=== PATIENT | female | born 1980 | race Caucasian/White ===

== ENCOUNTER 2016-03-30 17:46 | Emergency (ER) | payer BC ==
--- NOTE | 2016-03-30 18:29 | DIAGNOSTIC IMAGING REPORT ---
PROCEDURE: CT HEAD WITHOUT CONTRAST INDICATION: Frontal headache. Nausea. TECHNIQUE: Noncontrast axial images with sagittal and coronal reformations. COMPARISON: None. FINDINGS: Brain and ventricles are normal. No evidence of an acute process or hemorrhage. Sinuses and mastoids are normal. IMPRESSION: 1. Negative head CT. 2. Findings discussed with PRINCESS Feldman at [address] scans at this facility use dose modulation, iterative reconstruction, and/or weight-based dosing when appropriate to reduce radiation dose to as low as reasonably achievable.
--- NOTE | 2016-03-30 18:31 | ED NURSING NOTES ---
Clinical Report - Nurses [facility] [place] [address] 03/30/2016 17:53 Patient: LAITH CHAN TRIAGE Triage time 1802 PM. Chief Complaint: HEADACHE. Alert. No acute distress. DANETTE COMA SCORE: [place] Coma Scale: 15- eyes open spontaneously (4); best verbal response- oriented x 4 (5); best motor response- obeys commands (6). --18:12 Mohsen Nova R.N. 18:02 03/30/16. BP: 143/88. HR: 82. RR: 16. O2 saturation: 100%. Temp: 98.3 F. Pain level now: 01/02. --18:12 Mohsen Nova R.N. Weight: 69.8 kg stated. Height/Length: 59 inches Per Patient. BMI: 31.1. --18:06 Mohsen Nova R.N. Medications Vicodin Oral. --18:08 Mohsen Nova R.N. Venlafaxine HCl Oral. --18:08 Mohsen Nova R.N. Flonase Nasal. --18:08 Mohsen Nova R.N. ALPRAZolam Oral. --18:08 Mohsen Nova R.N. Allergies Sulfa Antibiotics. --18:09 Mohsen Nova R.N. Niacin. --18:09 Mohsen Nova R.N. Cymbalta. --18:09 Mohsen Nova R.N. History Arrived by private vehicle. Historian: patient and family. ( Patient presents to the ED with symptoms of headache, blood noses, and numbness on the right side of her face. Patient states that she went to the walk in clinic and they referred her to the ED. Patient states that the headache started yesterday and has taken ibuprofen, Excedrin, and "sinus meds" without relief. Patient states that the numbness and redness to the right side of her face is new to occurred both yesterday and today.). She has had nausea and weakness. 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 ("sinus meds" excedrin). PAST MEDICAL HX: Headaches. SOCIAL HX: Smoker- current status unknown (vaping). Alcohol use. (no). History of drug use. (no). No infectious disease exposure. FALL RISK ASSESSMENT: Fall risk assessment completed. No fall risk identified. NUTRITIONAL RISK ASSESSMENT: The nutritional risk assessment revealed no deficiencies. FUNCTIONAL ASSESSMENT: Functional assessment: no impairments noted. LEARNING NEEDS ASSESSMENT: The learning needs assessment revealed no barriers. SKIN INTEGRITY ASSESSMENT: Skin integrity risk assessment completed. No skin integrity risk identified. --18:12 Mohsen Nova R.N. PROBLEMS: Chronic sinusitis. Allergies. Headache. --18:11 Mohsen Nova R.N. ADDITIONAL SURGERIES: Appendectomy. Breast Reduction . Cholecystectomy. Inguinal Hernia Repair. --18:11 Mohsen Nova R.N. PHYSICAL ASSESSMENT GENERAL / NEURO / PSYCH: Alert. Oriented X 4. Appears in pain. Speech within normal limits. HEENT: No facial asymmetry noted. Pupils equal, round and reactive to light. RESPIRATORY: Respirations not labored. Breath sounds within normal limits. CVS: Capillary refill less than 2 seconds. GI / : Abdomen soft and nontender. SKIN: Skin is warm and dry. Skin rash located on the face. --18:12 Mohsen Nova R.N. Ambulatory to room. --18:12 Mohsen Nova R.N. NURSING PROGRESS NOTES 18:43 03/30/2016 Toradol (Ketorolac Tromethamine) IM 60 mg given. Given in the right deltoid. Allergies verified and confirmed 5 rights. --18:43 Mohsen Nova R.N. 18:43 03/30/2016 Benadryl (DiphenhydrAMINE HCl) IM 50 mg given. Given in the left deltoid. Allergies verified, confirmed 5 rights and sedative warning given to the patient. --18:43 Mohsen Nova R.N. 18:44 03/30/2016 Metoclopramide IM 10 mg given. Given in the right deltoid. Allergies verified and confirmed 5 rights. --18:44 Mohsen Nova R.N. DISPOSITION / DISCHARGE 19:16 03/30/2016 Toradol IM Response: no adverse reaction pain is improving. --19:16 Adonay JoleneZeina 19:16 03/30/2016 Benadryl IM Response: no adverse reaction pain is improving. --19:16 Jolene Urias R.N. 19:16 03/30/2016 Metoclopramide IM Response: no adverse reaction pain is improving. --19:16 Jolene Urias R.N. Departure time: 1915 pm. Condition at departure: improved and stable. No learning barriers present. Discharge instructions provided and reviewed with the patient and spouse. Reviewed warnings. Reviewed medication(s). Patient and spouse verbalized understanding. Written instructions provided in Maltese. The patient was discharged home and accompanied by spouse. She left the Emergency Department ambulatory and via private vehicle. Spouse driving. --19:17 Jolene Urias R.N. 19:16 03/30/16. BP: 120/75. HR: 72. RR: 16. O2 saturation: 100%. Temp: 98.3 F. Pain level now: 06/02. --19:17 Jolene Urias R.N. Locked/Released at 03/30/2016 19:41 by Mohsen Nova R.N.
--- NOTE | 2016-03-30 18:31 | ED ORDER SUMMARY ---
..... Patient: LAITH CHAN OrderSheet [facility] VisitID: [id number] [place] [address] 35y, F Registration Date/Time: 03/30/2016 ORDER SHEET Weight: 69.8 kg (stated) Allergies: Sulfa Antibiotics, Niacin, Cymbalta GENERAL ORDERS: CT Head wo Cont Urgent (18:08 03/30/2016 HBivens A.R.N.P.) (Ack 18:09 LTapper) (18:43 HOShaughnessy R.N.) Oxygen (2 L/min) (NC) (18:21 03/30/2016 HBivens A.R.N.P.) (18:43 HOShaughnessy R.N.) MEDICATION ORDERS: Toradol IM 60 mg (NOW) (18:07 03/30/2016 HBivens A.R.N.P.) (18:43 HOShaughnessy R.N.) Benadryl IM 50 mg (NOW) (18:07 03/30/2016 HBivens A.R.N.P.) (18:43 HOShaughnessy R.N.) - (Reglan 10mg im) (18:07 03/30/2016 HBivens A.R.N.P.) (18:44 HOShaughnessy R.N.) IV FLUIDS: ORDER SHEET NOTES: [Electronically signed by Mohsen Nova R.N. (19:41 03/30/2016)] [Electronically signed by Claudia Mckinnon A.R.N.P. (19:42 03/30/2016)] [Electronically locked/signed by Mohsen Nova R.N. (19:41 03/30/2016)]
--- NOTE | 2016-03-30 18:31 | ED NURSING NOTES ---
Clinical Report - Nurses [facility] [place] [address] 03/30/2016 17:53 Patient: LAITH CHAN TRIAGE Triage time 1802 PM. Chief Complaint: HEADACHE. Alert. No acute distress. DANETTE COMA SCORE: [place] Coma Scale: 15- eyes open spontaneously (4); best verbal response- oriented x 4 (5); best motor response- obeys commands (6). --18:12 Mohsen Nova R.N. 18:02 03/30/16. BP: 143/88. HR: 82. RR: 16. O2 saturation: 100%. Temp: 98.3 F. Pain level now: 01/02. --18:12 Mohsen Nova R.N. Weight: 69.8 kg stated. Height/Length: 59 inches Per Patient. BMI: 31.1. --18:06 Mohsen Nova R.N. Medications Vicodin Oral. --18:08 Mohsen Nova R.N. Venlafaxine HCl Oral. --18:08 Mohsen Nova R.N. Flonase Nasal. --18:08 Mohsen Nova R.N. ALPRAZolam Oral. --18:08 Mohsen Nova R.N. Allergies Sulfa Antibiotics. --18:09 Mohsen Nova R.N. Niacin. --18:09 Mohsen Nova R.N. Cymbalta. --18:09 Mohsen Nova R.N. History Arrived by private vehicle. Historian: patient and family. ( Patient presents to the ED with symptoms of headache, blood noses, and numbness on the right side of her face. Patient states that she went to the walk in clinic and they referred her to the ED. Patient states that the headache started yesterday and has taken ibuprofen, Excedrin, and "sinus meds" without relief. Patient states that the numbness and redness to the right side of her face is new to occurred both yesterday and today.). She has had nausea and weakness. 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 ("sinus meds" excedrin). PAST MEDICAL HX: Headaches. SOCIAL HX: Smoker- current status unknown (vaping). Alcohol use. (no). History of drug use. (no). No infectious disease exposure. FALL RISK ASSESSMENT: Fall risk assessment completed. No fall risk identified. NUTRITIONAL RISK ASSESSMENT: The nutritional risk assessment revealed no deficiencies. FUNCTIONAL ASSESSMENT: Functional assessment: no impairments noted. LEARNING NEEDS ASSESSMENT: The learning needs assessment revealed no barriers. SKIN INTEGRITY ASSESSMENT: Skin integrity risk assessment completed. No skin integrity risk identified. --18:12 Mohsen Nova R.N. PROBLEMS: Chronic sinusitis. Allergies. Headache. --18:11 Mohsen Nova R.N. ADDITIONAL SURGERIES: Appendectomy. Breast Reduction . Cholecystectomy. Inguinal Hernia Repair. --18:11 Mohsen Nova R.N. PHYSICAL ASSESSMENT GENERAL / NEURO / PSYCH: Alert. Oriented X 4. Appears in pain. Speech within normal limits. HEENT: No facial asymmetry noted. Pupils equal, round and reactive to light. RESPIRATORY: Respirations not labored. Breath sounds within normal limits. CVS: Capillary refill less than 2 seconds. GI / : Abdomen soft and nontender. SKIN: Skin is warm and dry. Skin rash located on the face. --18:12 Mohsen Nova R.N. Ambulatory to room. --18:12 Mohsen Nova R.N. NURSING PROGRESS NOTES 18:43 03/30/2016 Toradol (Ketorolac Tromethamine) IM 60 mg given. Given in the right deltoid. Allergies verified and confirmed 5 rights. --18:43 Mohsen Nova R.N. 18:43 03/30/2016 Benadryl (DiphenhydrAMINE HCl) IM 50 mg given. Given in the left deltoid. Allergies verified, confirmed 5 rights and sedative warning given to the patient. --18:43 Mohsen Nova R.N. 18:44 03/30/2016 Metoclopramide IM 10 mg given. Given in the right deltoid. Allergies verified and confirmed 5 rights. --18:44 Mohsen Nova R.N. DISPOSITION / DISCHARGE 19:16 03/30/2016 Toradol IM Response: no adverse reaction pain is improving. --19:16 Adonay JoleneZeina 19:16 03/30/2016 Benadryl IM Response: no adverse reaction pain is improving. --19:16 Jolene Urias R.N. 19:16 03/30/2016 Metoclopramide IM Response: no adverse reaction pain is improving. --19:16 Jolene Urias R.N. Departure time: 1915 pm. Condition at departure: improved and stable. No learning barriers present. Discharge instructions provided and reviewed with the patient and spouse. Reviewed warnings. Reviewed medication(s). Patient and spouse verbalized understanding. Written instructions provided in [place]. The patient was discharged home and accompanied by spouse. She left the Emergency Department ambulatory and via private vehicle. Spouse driving. --19:17 Jolene Urias R.N. 19:16 03/30/16. BP: 120/75. HR: 72. RR: 16. O2 saturation: 100%. Temp: 98.3 F. Pain level now: 06/02. --19:17 Jolene Urias R.N. Locked/Released at 03/30/2016 19:41 by Mohsen Nova R.N.
--- NOTE | 2016-03-30 18:31 | ED CLINICAL REPORT ---
Clinical Report - Physicians/Mid Levels [facility] [address] [place] [address] 03/30/2016 17:53 Patient: LAITH CHAN Time Seen: 17:58; upon arrival, initial patient contact, initial documentation, patient care assumed. Arrived- By private vehicle. Historian- patient. HISTORY OF PRESENT ILLNESS Is still present. Chief Complaint: HEADACHE. This started about 1 weeks ago. It was abrupt in onset and has been constant. It is described as similar to previous headaches, "pain" and diffuse. At its maximum, severity described as severe. When seen in the E.D., severity described as severe. Modifying factors: relieved by nothing. Not worsened by anything. The patient has had nausea. She has had new onset of localized numbness of the right face (mild). No preceding symptoms, blurred vision, photophobia, weakness or vomiting. (took numerous otc meds, including sinus meds, no relief, has pending appt with ent). No recent travel. Similar symptoms previously: Chronically, milder. Recent medical care: The patient was seen recently in a clinic. ( went to walk in clinic [employer], sent here for further eval and possible head ct). REVIEW OF SYSTEMS No fever, sinus pressure, ear pain, sore throat or head injury. She has had a mild skin rash consisting of "redness" located on the face and neck (rash that started earlier today on R side of face and neck, almost gone now). Skin rash is not itchy or painful. All systems otherwise negative, except as recorded above. PAST HISTORY See nurses notes. PROBLEMS: Chronic sinusitis. Allergies. Headache. --18:11 Mohsen Nova RUche. ADDITIONAL SURGERIES: Appendectomy. Breast Reduction . Cholecystectomy. Inguinal Hernia Repair. --18:11 Mohsen Nova R.N. 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 Occasional alcohol use. No drug use. No recent travel. Is a local resident. FAMILY HISTORY Negative. ADDITIONAL NOTES The nursing notes have been reviewed with agreement regarding the chief complaint, HPI, ROS, PMH and patient medications and allergies. PHYSICAL EXAM Vital Signs: 03/30/2016 18:02 BP: 143/88. HR: 82. RR: 16. O2 saturation: 100%. Temp: 98.3 F. Pain level now: 01/02. Have been reviewed as normal and appear to be correct. Appearance: Alert. No acute distress. Eyes: Pupils equal, round and reactive to light. Eyes normal inspection. ENT: Ears normal. Nose normal. Pharynx normal. Neck: Normal inspection. Neck supple. CVS: Normal heart rate and rhythm. Heart sounds normal. Pulses normal. Respiratory: No respiratory distress. Breath sounds normal. Back: Normal inspection. Skin: Skin warm and dry. Normal skin color. Rash present. Normal skin turgor. Mild, well-demarcated, erythematous, macular, blanching skin rash with an erythematous base located on the face (R side of face around periorbital area). Extremities: Extremities exhibit normal ROM. No lower extremity edema. Neuro: Oriented X 3. Alert. Mood/affect normal. Speech normal. Cranial nerves normal (as tested). No cerebellar findings. No motor deficit. No sensory deficit. LABS, X-RAYS, AND EKG CT Head: No acute disease. (IMPRESSION: 1. Negative head CT. 2. Findings discussed with PRINCESS Feldman at [address] scans at this facility use dose modulation, iterative reconstruction, and/or weight-based dosing when appropriate to reduce radiation dose to as low as reasonably achievable. Electronically Final signed by:Carloz Sanderson MD 03/30/2016 6:25:06 PM). The study was interpreted by the radiologist and contemporaneously by me. PROGRESS AND PROCEDURES Course of Care: pt does not want the fiorcet, asking for percocet. Patient and spouse counseled in person regarding the patient's stable condition, test results and diagnosis. 18:28. Differential Diagnosis: I considered migraine, cluster headache, subarachnoid hemorrhage, intracranial bleed, vascular malformation, cerebral aneurysm, vascular dissection, vasculitis, temporal arteritis, encephalitis, brain abscess, sinusitis, dental etiology, influenza, viral syndrome, carbon monoxide exposure, analgesic abuse, hypoglycemia and trigeminal neuralgia as a possible cause of headache in this patient. This is a partial list of diagnoses considered. Above considerations are based on history, physical exam and other information. Differential diagnosis was discussed with patient. Disposition: Discharged home in good and improved condition (18:31). Condition: good and stable. CLINICAL IMPRESSION Episodic, poorly controlled headache. INSTRUCTIONS Warnings: GENERAL WARNINGS: Return or contact your physician immediately if your condition worsens or changes unexpectedly, if not improving as expected, or if other problems arise. SPECIFICALLY, return if you develop fever, vomiting, weakness, difficulty thinking, visual disturbances, fainting or extreme fatigue. Prescription Medications: Zofran 4 mg: Take 1 orally every six hours as needed for nausea/vomiting. Dispense ten (10). No refills. Substitution is permissible. Percocet 5 mg/325 mg: take 1 tablet orally every 6 hours as needed for pain. Dispense five (5). No refill. Follow-up: Follow up with your doctor in about three days as needed. Call for an appointment. Summary of care provided to patient. Understanding of the discharge instructions verbalized by patient. (Electronically signed by Claudia Mckinnon A.R.N.P. 03/30/2016 19:42)
--- NOTE | 2016-03-30 18:31 | ED ORDER SUMMARY ---
..... Patient: LAITH CHAN OrderSheet [facility] VisitID: [id number] [place] [address] 35y, F Registration Date/Time: 03/30/2016 ORDER SHEET Weight: 69.8 kg (stated) Allergies: Sulfa Antibiotics, Niacin, Cymbalta GENERAL ORDERS: CT Head wo Cont Urgent (18:08 03/30/2016 HBivens A.R.N.P.) (Ack 18:09 LTapper) (18:43 HOShaughnessy R.N.) Oxygen (2 L/min) (NC) (18:21 03/30/2016 HBivens A.R.N.P.) (18:43 HOShaughnessy R.N.) MEDICATION ORDERS: Toradol IM 60 mg (NOW) (18:07 03/30/2016 HBivens A.R.N.P.) (18:43 HOShaughnessy R.N.) Benadryl IM 50 mg (NOW) (18:07 03/30/2016 HBivens A.R.N.P.) (18:43 HOShaughnessy R.N.) - (Reglan 10mg im) (18:07 03/30/2016 HBivens A.R.N.P.) (18:44 HOShaughnessy R.N.) IV FLUIDS: ORDER SHEET NOTES: [Electronically signed by Mohsen Nova R.N. (19:41 03/30/2016)] [Electronically signed by Claudia Mckinnon A.R.N.P. (19:42 03/30/2016)] [Electronically locked/signed by Mohsen Nova R.N. (19:41 03/30/2016)]
--- NOTE | 2016-03-30 19:43 | ED MED RECONCILIATION SUMMARY ---
Patient: LAITH CHAN Medication Reconciliation Report [facility] VisitID: [id number] [place] [address] 35y, F Registration Date/Time: 03/30/2016 Weight: 69.8 kg Height/Length: 59 in. BMI: 31.1 ALLERGIES: Cymbalta, Niacin, Sulfa Antibiotics The patient's Home Medications are listed below: THE FOLLOWING MEDICATIONS NEED TO BE RECONCILED: ALPRAZolam Oral Flonase Nasal Venlafaxine HCl Oral Vicodin Oral The source(s) of the original Home Medication information: Not obtained. The following Medications were given to the patient in the Emergency Department: Toradol [IM] IM 60 mg, administered: 03/30/2016 6:43:00 PM Benadryl [IM] IM 50 mg, administered: 03/30/2016 6:43:00 PM Metoclopramide [IM] IM 10 mg, administered: 03/30/2016 6:44:00 PM The following Medications were prescribed to the patient: Zofran 4 mg: Take 1 orally every six hours as needed for nausea/vomiting. Dispense ten (10). No refills. Substitution is permissible. -- Claudia Mckinnon, A.R.N.P. Percocet 5 mg/325 mg: take 1 tablet orally every 6 hours as needed for pain. Dispense five (5). No refill. -- Claudia Mckinnon A.R.N.P.
--- NOTE | 2016-03-30 19:43 | ED DISCHARGE INSTRUCTIONS ---
Patient: LAITH CHAN General Instructions [facility] VisitID: [id number] [place] [address] 35y, F Registration Date/Time: 03/30/2016 Episodic, poorly controlled headache. INSTRUCTIONS Warnings: GENERAL WARNINGS: Return or contact your physician immediately if your condition worsens or changes unexpectedly, if not improving as expected, or if other problems arise. SPECIFICALLY, return if you develop fever, vomiting, weakness, difficulty thinking, visual disturbances, fainting or extreme fatigue. Prescription Medications: Zofran 4 mg: Take 1 orally every six hours as needed for nausea/vomiting. Dispense ten (10). No refills. Substitution is permissible. Percocet 5 mg/325 mg: take 1 tablet orally every 6 hours as needed for pain. Dispense five (5). No refill. Follow-up: Follow up with your doctor in about three days as needed. Call for an appointment. Summary of care provided to patient. Understanding of the discharge instructions verbalized by patient. ADDITIONAL INFORMATION Headache [Unspecified] The cause of your headache today is not clear, but it does not appear to be the sign of any serious illness. Under stress, some people tense the muscles of their shoulder, neck and scalp without knowing it. If this condition lasts long enough, a TENSION HEADACHE can occur. A MIGRAINE HEADACHE is caused by changes in blood flow to the brain. A migraine attack may be triggered by emotional stress, hormone changes during the menstrual cycle, oral contraceptives, alcohol use, certain foods containing tyramine, eye strain, weather changes, missing meals, lack of sleep or oversleeping. Other causes of headache include a viral illness with high fever, head injury with concussion, sinus, ear or throat infection, dental pain and TMJ (jaw joint) pain. More serious but less common causes of headache include stroke, brain hemorrhage, brain tumor, meningitis and encephalitis. Home Care: If you were given pain medicine for this headache, do not drive yourself home. Arrange for a ride, instead. When you get home, try to sleep. You should feel much better when you wake up. Apply heat to the back of your neck to relieve neck muscle spasm. Migraine headaches may respond best to an ice pack on the forehead or at the base of the skull. If you are having nausea or vomiting, follow a light diet until your headache is relieved. If you have a migraine type headache, use sunglasses when in the daylight or around bright indoor lighting until symptoms improve. Bright glaring light can worsen this kind of headache. Follow Up with your doctor if the headache is not better within the next 24 hours. If you have frequent headaches you should discuss a treatment plan with your primary care doctor. By being aware of the earliest signs of headache, and starting treatment right away, you may be able to stop the pain yourself. Get Prompt Medical Attention if any of the following occur: Worsening of your head pain or no improvement within 24 hours Repeated vomiting (unable to keep liquids down) Fever of 100.4F (38C) or higher, or as directed by your healthcare provider Stiff neck Extreme drowsiness, confusion or fainting Dizziness, vertigo (dizziness with spinning sensation) Weakness of an arm or leg or one side of the face Difficulty with speech or vision Ondansetron Oral disintegrating tablet What is this medicine? ONDANSETRON (on MARIS se anjana) is used to treat nausea and vomiting caused by chemotherapy. It is also used to prevent or treat nausea and vomiting after surgery. How should I use this medicine? These tablets are made to dissolve in the mouth. Do not try to push the tablet through the foil backing. With dry hands, peel away the foil backing and gently remove the tablet. Place the tablet in the mouth and allow it to dissolve, then swallow. While you may take these tablets with water, it is not necessary to do so. Talk to your automatic silk screen printer regarding the use of this medicine in children. Special care may be needed. What side effects may I notice from receiving this medicine? Side effects that you should report to your doctor or health health care attorney as soon as possible: allergic reactions like skin rash, itching or hives, swelling of the face, lips, or tongue breathing problems dizziness fast or irregular heartbeat feeling faint or lightheaded, falls fever and chills swelling of the hands and feet tightness in the chest Side effects that usually do not require medical attention (report to your doctor or health health care attorney if they continue or are bothersome): constipation or diarrhea headache What may interact with this medicine? Do not take this medicine with any of the following medications: -apomorphine -cisapride -dofetilide -dronedarone -pimozide -thioridazine -ziprasidone This medicine may also interact with the following medications: -carbamazepine -phenytoin -rifampicin -tramadol -other medicines that prolong the QT interval (cause an abnormal heart rhythm) What if I miss a dose? If you miss a dose, take it as soon as you can. If it is almost time for your next dose, take only that dose. Do not take double or extra doses. Where should I keep my medicine? Keep out of the reach of children. Store between 2 and 30 degrees C (36 and 86 degrees F). Throw away any unused medicine after the expiration date. What should I tell my health care provider before I take this medicine? They need to know if you have any of these conditions: heart disease history of irregular heartbeat liver disease low levels of magnesium or potassium in the blood an unusual or allergic reaction to ondansetron, granisetron, other medicines, foods, dyes, or preservatives or trying to get breast-feeding What should I watch for while using this medicine? Check with your doctor or health health care attorney as soon as you can if you have any sign of an allergic reaction. Oxycodone Hydrochloride, Acetaminophen Oral tablet What is this medicine? ACETAMINOPHEN; OXYCODONE (a set a TRICE eleonora fen; ox i KOE done) is a pain reliever. It is used to treat mild to moderate pain. How should I use this medicine? Take this medicine by mouth with a full glass of water. Follow the directions on the prescription label. Take your medicine at regular intervals. Do not take your medicine more often than directed. Talk to your automatic silk screen printer regarding the use of this medicine in children. Special care may be needed. Patients over 65 years old may have a stronger reaction and need a smaller dose. What side effects may I notice from receiving this medicine? Side effects that you should report to your doctor or health health care attorney as soon as possible: allergic reactions like skin rash, itching or hives, swelling of the face, lips, or tongue breathing difficulties, wheezing confusion light headedness or fainting spells severe stomach pain yellowing of the skin or the whites of the eyes Side effects that usually do not require medical attention (report to your doctor or health health care attorney if they continue or are bothersome): dizziness drowsiness nausea vomiting What may interact with this medicine? alcohol antihistamines barbiturates like amobarbital, butalbital, butabarbital, methohexital, pentobarbital, phenobarbital, thiopental, and secobarbital benztropine drugs for bladder problems like solifenacin, trospium, oxybutynin, tolterodine, hyoscyamine, and methscopolamine drugs for breathing problems like ipratropium and tiotropium drugs for certain stomach or intestine problems like propantheline, homatropine methylbromide, glycopyrrolate, atropine, belladonna, and dicyclomine general anesthetics like etomidate, ketamine, nitrous oxide, propofol, desflurane, enflurane, halothane, isoflurane, and sevoflurane medicines for depression, anxiety, or psychotic disturbances medicines for sleep muscle relaxants naltrexone narcotic medicines (opiates) for pain phenothiazines like perphenazine, thioridazine, chlorpromazine, mesoridazine, fluphenazine, prochlorperazine, promazine, and trifluoperazine scopolamine tramadol trihexyphenidyl What if I miss a dose? If you miss a dose, take it as soon as you can. If it is almost time for your next dose, take only that dose. Do not take double or extra doses. Where should I keep my medicine? Keep out of the reach of children. This medicine can be abused. Keep your medicine in a safe place to protect it from theft. Do not share this medicine with anyone. Selling or giving away this medicine is dangerous and against the law. Store at room temperature between 20 and 25 degrees C (68 and 77 degrees F). Keep container tightly closed. Protect from light. This medicine may cause accidental overdose and if it is taken by other adults, children, or pets. Flush any unused medicine down the toilet to reduce the chance of harm. Do not use the medicine after the expiration date. What should I tell my health care provider before I take this medicine? They need to know if you have any of these conditions: brain tumor Crohn's disease, inflammatory bowel disease, or ulcerative colitis drink more than 3 alcohol containing drinks per day drug abuse or addiction head injury heart or circulation problems kidney disease or problems going to the bathroom liver disease lung disease, asthma, or breathing problems an unusual or allergic reaction to acetaminophen, oxycodone, other opioid analgesics, other medicines, foods, dyes, or preservatives or trying to get breast-feeding What should I watch for while using this medicine? Tell your doctor or health health care attorney if your pain does not go away, if it gets worse, or if you have new or a different type of pain. You may develop tolerance to the medicine. Tolerance means that you will need a higher dose of the medication for pain relief. Tolerance is normal and is expected if you take this medicine for a long time. Do not suddenly stop taking your medicine because you may develop a severe reaction. Your body becomes used to the medicine. This does NOT mean you are addicted. Addiction is a behavior related to getting and using a drug for a non-medical reason. If you have pain, you have a medical reason to take pain medicine. Your doctor will tell you how much medicine to take. If your doctor wants you to stop the medicine, the dose will be slowly lowered over time to avoid any side effects. You may get drowsy or dizzy. Do not drive, use machinery, or do anything that needs mental alertness until you know how this medicine affects you. Do not stand or sit up quickly, especially if you are an older patient. This reduces the risk of dizzy or fainting spells. Alcohol may interfere with the effect of this medicine. Avoid alcoholic drinks. There are different types of narcotic medicines (opiates) for pain. If you take more than one type at the same time, you may have more side effects. Give your health care provider a list of all medicines you use. Your doctor will tell you how much medicine to take. Do not take more medicine than directed. Call emergency for help if you have problems breathing. The medicine will cause constipation. Try to have a bowel movement at least every 2 to 3 days. If you do not have a bowel movement for 3 days, call your doctor or health health care attorney. Do not take Tylenol (acetaminophen) or medicines that have acetaminophen with this medicine. Too much acetaminophen can be very dangerous. Many nonprescription medicines contain acetaminophen. Always read the labels carefully to avoid taking more acetaminophen. You have been given the following additional information: Headache, Unspecified Ondansetron Oral disintegrating tablet Oxycodone Hydrochloride, Acetaminophen Oral tablet (Electronically signed by Claudia Mckinnon A.R.N.P. 03/30/2016 19:42)
--- NOTE | 2016-03-30 19:43 | ED MAR SUMMARY ---
..... Medication Administration Record [facility] [address] [place] [address] Patient: LAITH CHAN Visit ID: [id number] 35y, F Weight: 69.8 kg Height/Length: 59 in BMI: 31.1 ALLERGIES: Cymbalta, Niacin, Sulfa Antibiotics Given 18:43 03/30/2016 Mohsen Nova, RThomasN. Medication Administered: TORADOL [IM] (KETOROLAC TROMETHAMINE), Dose: 60 mg IM. Medication Ordered: Toradol IM 60 mg (NOW). Given 18:43 03/30/2016 Mohsen Nova, RThomasN. Medication Administered: BENADRYL [IM] (DIPHENHYDRAMINE HCL), Dose: 50 mg IM. Medication Ordered: Benadryl IM 50 mg (NOW). Given 18:44 03/30/2016 Mohsen Nova, R.N. Medication Administered: METOCLOPRAMIDE [IM], Dose: 10 mg IM. Medication Ordered: - (Reglan 10mg im).
--- NOTE | 2016-03-30 19:43 | ED MED RECONCILIATION SUMMARY ---
Patient: LAITH CHAN Medication Reconciliation Report [facility] VisitID: [id number] [place] [address] 35y, F Registration Date/Time: 03/30/2016 Weight: 69.8 kg Height/Length: 59 in. BMI: 31.1 ALLERGIES: Cymbalta, Niacin, Sulfa Antibiotics The patient's Home Medications are listed below: THE FOLLOWING MEDICATIONS NEED TO BE RECONCILED: ALPRAZolam Oral Flonase Nasal Venlafaxine HCl Oral Vicodin Oral The source(s) of the original Home Medication information: Not obtained. The following Medications were given to the patient in the Emergency Department: Toradol [IM] IM 60 mg, administered: 03/30/2016 6:43:00 PM Benadryl [IM] IM 50 mg, administered: 03/30/2016 6:43:00 PM Metoclopramide [IM] IM 10 mg, administered: 03/30/2016 6:44:00 PM The following Medications were prescribed to the patient: Zofran 4 mg: Take 1 orally every six hours as needed for nausea/vomiting. Dispense ten (10). No refills. Substitution is permissible. -- Claudia Mckinnon, A.R.N.P. Percocet 5 mg/325 mg: take 1 tablet orally every 6 hours as needed for pain. Dispense five (5). No refill. -- Claudia Mckinnon A.R.N.P.
--- NOTE | 2016-03-30 19:43 | ED MAR SUMMARY ---
..... Medication Administration Record [facility] [address] [place] [address] Patient: LAITH CHAN Visit ID: [id number] 35y, F Weight: 69.8 kg Height/Length: 59 in BMI: 31.1 ALLERGIES: Cymbalta, Niacin, Sulfa Antibiotics Given 18:43 03/30/2016 Mohsen Nova, RThomasN. Medication Administered: TORADOL [IM] (KETOROLAC TROMETHAMINE), Dose: 60 mg IM. Medication Ordered: Toradol IM 60 mg (NOW). Given 18:43 03/30/2016 Mohsen Nova, RThomasN. Medication Administered: BENADRYL [IM] (DIPHENHYDRAMINE HCL), Dose: 50 mg IM. Medication Ordered: Benadryl IM 50 mg (NOW). Given 18:44 03/30/2016 Mohsen Nova, R.N. Medication Administered: METOCLOPRAMIDE [IM], Dose: 10 mg IM. Medication Ordered: - (Reglan 10mg im).
== END 2016-03-30 19:15 | disposition home or self-care (01) ==
LOC: ED SRH 17:46
DX: R51 Headache (principal); Z79.891 Long term (current) use of opiate analgesic; Z88.2 Allergy status to sulfonamides